=== PATIENT | male | born 1960 | race Caucasian/White ===

== ENCOUNTER 2023-01-28 09:30 | Emergency (ER) | payer MEDICAID ==
[2023-01-28 09:41] VITALS: BP 134/85
--- NOTE | 2023-01-28 10:15 | ED Physician Documentation ---
PD HPI SKIN - Stated complaint Stated Complaint: NECK RASH,RED SPOTS ON BODY - Chief complaint Chief Complaint: Wound - History obtained from History obtained from: Patient - History of Present Illness Timing - onset: How many weeks ago (2) Timing - duration: Weeks (2) Timing - details: Gradual onset Location: Chest, Abdomen, Back, RUE, LUE, RLE, LLE Quality / character: Itchy - Additional information Additional information: 62-year-old male with a rash to the neck, down through his back and torso. Complains as itchy. No fevers. He states that there has been drainage to one of the areas up near his neck. Does not recall any new soaps, detergents, medic ations, foods. He complains of the rash on his arms and legs as well. Review of Systems Constitutional: denies: Fever, Chills GI: denies: Vomiting, Diarrhea Neurologic: denies: Headache PD PAST MEDICAL HISTORY - Past Medical History Cardiovascular: Hypertension Respiratory: None GI: None : None HEENT: None Musculoskeletal: None Derm: None - Past Surgical History General: Liver surgery, Other - Present Medications Home Medications: Ambulatory Orders Medication Instructions Recorded Confirmed cephALEXin [Keflex] 500 mg PO QID #40 capsule 06/06/16 cephALEXin [Keflex] 500 mg PO Q6H #28 cap 01/28/23 predniSONE [Deltasone] 10 mg PO [id number] #42 tab 01/28/23 - Allergies Allergies/Adverse Reactions: Allergies Allergy/AdvReac Type Severity Reaction Status Date / Time No Known Drug Allergies Allergy Verified 01/28/23 09:42 - Social History Does the pt smoke?: Yes Smoking Status: Current every day smoker Does the pt drink ETOH?: Yes Does the pt have substance abuse?: No PD ED PE NORMAL - Vitals Vital signs reviewed: Yes - General General: Alert and oriented X 3, No acute distress - HEENT HEENT: PERRL, Moist mucous membranes - Neck Neck: Supple, no meningeal sign - Cardiac Cardiac: RRR, Strong equal pulses - Respiratory Respiratory: No respiratory distress, Clear bilaterally - Abdomen Abdomen: Soft, Non tender, Non distended - Derm Derm: Warm and dry - Neuro Neuro: Alert and oriented X 3 - Psych Psych: Normal mood, Normal affect - Free text exam Free text exam: Diffuse maculopapular exanthem over the back, arms, legs, chest and abdomen. There is significant excoriation up near the neck, especially on the left side where there is erythema and slight drainage. Results - Vitals Vitals: Vital Signs - 24 hr 01/28/23 09:37 Temperature 36.9 C Heart Rate 82 Respiratory 16 Rate Blood Pressure 134/85 H O2 Saturation 100 Oxygen O2 Source Room air PD Medical Decision Making - ED course Complexity details: considered differential, d/w patient ED course: Patient with a maculopapular rash of unclear etiology. Will place on a steroid taper. He appears to have secondary infection of a small area on the left neck. We will place on antibiotics orally for this. Patient is well-appearing, nontoxic. Afebrile. Patient counseled regarding signs and symptoms for which I believe and urgent re-evaluation would be necessary. Patient with good understanding of and agreement to plan and is comfortable going home at this time This document was made in part using voice recognition software. While efforts are made to proofread this document, sound alike and grammatical errors may occur. Departure - Departure Disposition: 01 Home, Self Care Clinical Impression: Dermatitis Cellulitis Qualifiers: Site of cellulitis: unspecified site Qualified Code(s): L03.90 - Cellulitis, unspecified Condition: Good Instructions: ED Infec Skin Cellulitis, ED Dermatitis Non Specific Rash Follow-Up: Terra Horn DO [Primary Care Provider] - [facility] [Provider Group] [facility] [Provider Group] - Within 1 week [facility] [Provider Group] Prescriptions: predniSONE [Deltasone] 10 mg PO [id number] #42 tab cephALEXin [Keflex] 500 mg PO Q6H #28 cap Comments: The cause of your symptoms is unclear. We will put you on steroids and antibiotics. This should improve with the rash and the secondary infection. Please follow-up for a recheck with your doctor in approximately 1 week. If your symptoms are still present, you may want to make an appointment with dermatology. Their information is on this paperwork. Your prescriptions were sent to [facility] in [place]. Discharge Date/Time: 01/28/23 10:26
== END 2023-01-28 10:26 | disposition home or self-care (01) ==
LOC: ED 09:30
DX: L30.9 Dermatitis, unspecified (principal); L03.90 Cellulitis, unspecified; I10 Essential (primary) hypertension; F17.200 Nicotine dependence, unspecified, uncomplicated
CPT/HCPCS: 99282; 99283

== ENCOUNTER 2023-04-23 08:30 | Emergency (ER) | payer MEDICAID ==
--- NOTE | 2023-04-23 08:40 | ED Physician Documentation ---
PD HPI UPPER EXT INJURY - Stated complaint Stated Complaint: LT SHOULDER PX - Chief complaint Chief Complaint: Trauma Ext - History obtained from History obtained from: Patient - History of Present Illness Location: Left, Shoulder Type of injury: Fall (he says he got up too fast and felt lightheaded and stumbled and fell. Did not have LOC. did not strike head.) Where injury occurred: Home Timing - onset: How many days ago ("few") Timing - duration: Days ("few") Timing - details: Abrupt onset, Still present Worsened by: Moving, Palpating Associated symptoms: Swelling, Discolored (very bruised around shoulder and down anterior arm increasingly.). No: Weakness, Numbness Contributing factors: No: Anticoagulated, Prior ortho surgery Similar symptoms before: Has not had sx before Recently seen: Not recently seen Review of Systems Skin: denies: Abrasion (s), Laceration (s) Musculoskeletal: reports: Extremity swelling. denies: Neck pain, Back pain PD PAST MEDICAL HISTORY - Past Medical History Cardiovascular: Hypertension Respiratory: None GI: None : None HEENT: None Musculoskeletal: None Derm: None - Past Surgical History General: Liver surgery, Other - Present Medications Home Medications: Ambulatory Orders Medication Instructions Recorded Confirmed Acetaminophen [Acetaminophen Extra 500 mg PO QID PRN #50 tablet 04/23/23 Strength] Famotidine [Pepcid] 20 mg PO BID 04/23/23 04/23/23 methocarbamoL [Robaxin] 500 mg PO Q6H PRN #30 tablet 04/23/23 oxyCODONE [Roxicodone] 5 mg PO Q6H PRN #20 tablet 04/23/23 - Allergies Allergies/Adverse Reactions: Allergies Allergy/AdvReac Type Severity Reaction Status Date / Time No Known Drug Allergies Allergy Verified 04/23/23 08:33 - Social History Does the pt smoke?: Yes Smoking Status: Current every day smoker Does the pt drink ETOH?: Yes Does the pt have substance abuse?: No PD ED PE NORMAL - Vitals Vital signs reviewed: Yes - General General: Alert and oriented X 3, No acute distress, Well developed/nourished - HEENT HEENT: Atraumatic - Neck Neck: Supple, no meningeal sign, No bony TTP - Derm Derm: Normal color, Warm and dry - Extremities Extremities: Other (left shoulder tender with effusion and hematoma anteriorly. Not feeling dislocated but there is deformity of the proximal humerus. No skin lesions/lacs. Bruising around shoulder and anterior upper arm down to elbow area but not tender tnere. ) - Neuro Neuro: Alert and oriented X 3, No motor deficit, No sensory deficit Results - Vitals Vitals: Vital Signs - 24 hr 04/23/23 04/23/23 08:36 10:26 Temperature 36.5 C Heart Rate 91 75 Respiratory 16 16 Rate Blood Pressure 134/93 H 123/86 H O2 Saturation 100 99 Oxygen O2 Source Room air - Rads (name of study) left shouldeg Relevant Findings:: Prelim report reviewed, EMP independent interpretation of test (humeral neck fracture with displacement and angulation of distal segment. No dislocaiton.), See rad report Procedures - Splint (location) - Minor left upper arm Splint applied by: Tech Type of splint: Sugar tong Other: Patient tolerated well, No complications, Neurovascular intact, Sling provided PD Medical Decision Making - ED course Complexity details: reviewed results, considered differential (he had humeral neck fracture that is angulated and upriding. Rather than a Marie type brace, I think he needs a sugartong to protect outer part and has some weight to pull down the distal portion. To follow up with ortho in about a week. ), d/w patient Departure - Departure Disposition: 01 Home, Self Care Clinical Impression: Fall from slip, trip, or stumble, Fracture of neck of humerus Condition: Stable Record reviewed to determine appropriate education?: Yes Instructions: ED Fx Shoulder Follow-Up: [facility] [Provider Group] Prescriptions: Acetaminophen [Acetaminophen Extra Strength] 500 mg PO QID PRN #50 tablet PRN Reason: Pain methocarbamoL [Robaxin] 500 mg PO Q6H PRN #30 tablet PRN Reason: Spasms oxyCODONE [Roxicodone] 5 mg PO Q6H PRN #20 tablet PRN Reason: Pain Comments: You have a fracture of the humerus bone which is the one up to the shoulder. The ball of the humerus is in place so there is not a dislocation. It is broken just below that. Typically will treat this with the splint there to try to protect it and also allow a slight pull downward to align it. Use the sling to help support the arm as well. Follow-up with orthopedics in about a week, call today for an appointment. Tylenol 4 times daily for pain. Robaxin muscle relaxant for spasms. To that add oxycodone every 6 hours if needed for pain. I sent your prescriptions to [facility] pharmacy. My narcotic instructions I am prescribing a short course of narcotic pain medication for you. These are potentially dangerous and addictive medications that should be used carefully. These medications may constipate you. Take an melv-mzv-txoxxon stool softener such as docusate twice daily with plenty of water while taking these medications. If you go 24 hours without a bowel movement, take acvu-wsx-oepvyeu MiraLAX, per package instructions. Do not drink or drive while taking these medications. If you received narcotic or sedating medications while in the emergency department do not drive for 24 hours. Store this medication in a safe, secure place and out of reach of children. It is a violation of federal law to give or sell this medication to another person or to use in a manner other than prescribed. The ED will not refill narcotic prescriptions, including prescriptions lost or stolen. You can dispose of unwanted medications at the [facility] office or at several pharmacies such as [facility]. Discharge Date/Time: 04/23/23 10:26
--- OUTSIDE RECORDS SUMMARY | 2023-04-23 09:07 | EXTERNAL MEDICAL SUMMARY RPT | Continuity of Care Document ---
Author Name Unknown Address [address] [place] [address] Phone Organization [facility] Address [address] [place] [address] Phone Care Team Providers Care Case Assistant Name Role Phone Suhail Wagner Rn Unavailable Unavailable Medications date description facility 2023-01-28 00:00 cephalexin [facility] 2023-01-28 00:00 prednisone All 2023-01-28 00:00 cephalexin All 2023-01-28 00:00 prednisone All 2023-01-28 00:00 prednisone All 2023-01-28 00:00 prednisone All 2023-01-28 00:00 cephalexin All 2023-01-28 00:00 cephalexin All
--- NOTE | 2023-04-23 09:12 | XRAY Report ---
PROCEDURE: Shoulder 3 View LT INDICATIONS: fell to left shoulder TECHNIQUE: 3 views of the shoulder were acquired. COMPARISON: None. FINDINGS: Bones: There is a comminuted, displaced, angulated, impacted fracture of the left humeral surgical n cristal. Soft tissues: No suspicious soft tissue calcifications. IMPRESSION: Displaced left proximal humeral surgical neck fracture. Reviewed by: Jada Long MD on 04/23/2023 9:10 AM PDT Approved by: Jada Long MD on 04/23/2023 9:10 AM PDT Station ID: [id number]
[2023-04-23] MEDS ORDERED: oxyCODONE 5 MG TABLET PO STA (09:33)
[2023-04-23] MEDS ORDERED: methocarbamoL 500 MG TABLET PO STA (09:34)
[2023-04-23 10:28] VITALS: BP 123/86
== END 2023-04-23 10:26 | disposition home or self-care (01) ==
LOC: ED 08:30
DX: S42.212A Unspecified displaced fracture of surgical neck of left humerus, initial encounter for closed fracture (principal); W01.0XXA Fall on same level from slipping, tripping and stumbling without subsequent striking against object, initial encounter; I10 Essential (primary) hypertension; F17.200 Nicotine dependence, unspecified, uncomplicated; Z79.899 Other long term (current) drug therapy
CPT/HCPCS: 29105; 73030; 99283; 99284; A9270

== ENCOUNTER 2023-06-12 17:37 | Outpatient (CLI) | payer MEDICAID | END 2023-06-12 23:59 | disposition left against medical advice (07) | LOC: EMS 17:37 | DX: S00.81XA Abrasion of other part of head, initial encounter (principal); W01.0XXA Fall on same level from slipping, tripping and stumbling without subsequent striking against object, initial encounter; Y92.481 Parking lot as the place of occurrence of the external cause ==

== ENCOUNTER 2023-06-19 14:14 | Emergency (ER) | payer MEDICAID ==
--- NOTE | 2023-06-19 14:47 | ED Physician Documentation ---
PD HPI UPPER EXT INJURY - Stated complaint Stated Complaint: LT ARM BONE POP - Chief complaint Chief Complaint: Ext Problem - History obtained from History obtained from: Patient - Additonal information Additional information: Patient presents from home by private vehicle for L arm injury. Patient states that the injury was approximately 3 weeks old, however record review shows that injury was sustained at least 2 months ago. Patient states he was post to follow-up with orthopedic surgery but did not because "I am a procrastinator". When asked why the patient presented today he states "because it is becoming an inconvenience". He has obvious deformity to the left shoulder. He is able to move his arm but is not able to elevate the extremity past 90 degrees. PD PAST MEDICAL HISTORY - Past Medical History Cardiovascular: Hypertension Respiratory: None GI: None : None HEENT: None Musculoskeletal: None Derm: None - Past Surgical History General: Liver surgery, Other - Present Medications Home Medications: Ambulatory Orders Medication Instructions Recorded Confirmed Acetaminophen [Acetaminophen Extra 500 mg PO QID PRN #50 tablet 04/23/23 06/19/23 Strength] Famotidine [Pepcid] 20 mg PO BID 04/23/23 06/19/23 - Allergies Allergies/Adverse Reactions: Allergies Allergy/AdvReac Type Severity Reaction Status Date / Time No Known Drug Allergies Allergy Verified 06/19/23 14:28 - Social History Does the pt smoke?: Yes Smoking Status: Current every day smoker Does the pt drink ETOH?: Yes Does the pt have substance abuse?: No PD ED PE NORMAL - Vitals Vital signs reviewed: Yes - General General: Alert and oriented X 3, No acute distress, Other (disheveled, appears chronically unwell) - Cardiac Cardiac: RRR - Respiratory Respiratory: No respiratory distress, Clear bilaterally - Abdomen Abdomen: Soft, Non distended - Extremities Extremities: Other (deformity L shoulder. Able to abduct shoulder to 90 degrees. 2+ radial pulses) - Neuro Neuro: Alert and oriented X 3, toolroom clerk 2-12 intact, No sensory deficit, Normal speech - Psych Psych: Normal mood, Normal affect Results - Vitals Vitals: Vital Signs - 24 hr 06/19/23 14:21 Temperature 38.0 C H Heart Rate 93 Respiratory 20 Rate Blood Pressure 159/127 H O2 Saturation 95 Oxygen O2 Source Room air PD Medical Decision Making - ED course Complexity details: reviewed results, re-evaluated patient, considered differential, d/w patient ED course: Chronic LUE fracture. Neurovascularly intact. Obvious bony deformity with protrusion of skin of shoulder, however no tenting of skin. XR reviewed. Dr. Gary of orthopedic surgery evaluated patient - this is chronic wound and almost completely healed. In addition patient is heavy smoker and alcohol user - he is not an ideal surgical candidate, and would eventually need complete shoulder replacement once optimized from a health standpoint. Patient states he will "cut down" on alcohol but will not stop smoking. Departure - Departure Disposition: 01 Home, Self Care Clinical Impression: Humerus fracture, Tobacco use, Alcohol use disorder Condition: Stable Instructions: Tips Cardiovascular Quit Smoking, Alcoholism, ED Fx Upper Ext Follow-Up: Kaden Gary MD [Provider Admit Priv/Credential] - Comments: FOLLOW UP WITH ORTHOPEDIC SURGERY. TO BE THE BEST SURGICAL CANDIDATE YOU MUST BE ALCOHOL AND TOBACCO FREE. Forms: PCP List
--- NOTE | 2023-06-19 15:10 | XRAY Report ---
PROCEDURE: Shoulder 3 View LT INDICATIONS: deformity. Follow-up fracture. TECHNIQUE: 3 views of the shoulder were acquired. COMPARISON: Radiograph 04/23/2023. FINDINGS: Bones: There is a 2 part fracture of the surgical neck of the humerus, with new bone callus formatio n. Alignment is similar. Soft tissues: No suspicious soft tissue calcifications. IMPRESSION: Similar alignment of the 2 part fracture of the humeral surgical neck. Bone callus formation present. Reviewed by: López Lauren on 06/19/2023 3:09 PM PDT Approved by: López Lauren on 06/19/2023 3:09 PM PDT Station ID: [id number]
[2023-06-19 15:32] VITALS: BP 105/65
== END 2023-06-19 15:32 | disposition home or self-care (01) ==
LOC: ED 14:14
DX: S42.302A Unspecified fracture of shaft of humerus, left arm, initial encounter for closed fracture (principal); X58.XXXA Exposure to other specified factors, initial encounter; I10 Essential (primary) hypertension; F17.200 Nicotine dependence, unspecified, uncomplicated; F10.90 Alcohol use, unspecified, uncomplicated
CPT/HCPCS: 99283

== ENCOUNTER 2023-08-15 09:34 | Emergency (ER) | payer MEDICAID ==
--- NOTE | 2023-08-15 10:51 | ED Physician Documentation ---
PD HPI UPPER EXT INJURY - Stated complaint Stated Complaint: LT SHOULDER PX - Chief complaint Chief Complaint: Ext Problem - History obtained from History obtained from: Patient - History of Present Illness Location: Left, Shoulder Type of injury: Fall Where injury occurred: Home (slipped on floor at home with humeral neck fracture few months ago. Seen by ortho couple months ago and told it was healing with callus and to have PT to see if shoulder movement improvable. He states having increased pain and now swelling/redness at end of collarbone area for 1-2 weeks.) Timing - details: Abrupt onset, Still present Associated symptoms: No: Weakness, Numbness Review of Systems Constitutional: denies: Fever, Chills Skin: reports: Lesions Neurologic: denies: Focal weakness, Numbness PD PAST MEDICAL HISTORY - Past Medical History Past Medical History: Yes Cardiovascular: Hypertension Respiratory: None GI: None : None HEENT: None Musculoskeletal: None Derm: None - Past Surgical History Past Surgical History: Yes General: Liver surgery, Other - Present Medications Home Medications: Ambulatory Orders Medication Instructions Recorded Confirmed Acetaminophen [Acetaminophen Extra 500 mg PO QID PRN #50 tablet 04/23/23 06/19/23 Strength] Famotidine [Pepcid] 20 mg PO BID 04/23/23 06/19/23 HYDROcod/ACETAM 5/325 [Remer 5/325] 1 ea PO Q6H PRN #18 tablet 08/15/23 Meloxicam [Mobic] 7.5 mg PO BID 10 Days #20 tablet 08/15/23 cephALEXin [Keflex] 500 mg PO TID #20 cap 08/15/23 - Allergies Allergies/Adverse Reactions: Allergies Allergy/AdvReac Type Severity Reaction Status Date / Time No Known Drug Allergies Allergy Verified 08/15/23 09:44 - Social History Does the pt smoke?: Yes Smoking Status: Current every day smoker Does the pt drink ETOH?: Yes Does the pt have substance abuse?: No PD ED PE NORMAL - Vitals Vital signs reviewed: Yes - HEENT HEENT: Atraumatic - Neck Neck: Supple, no meningeal sign, No bony TTP - Cardiac Cardiac: RRR, No murmur - Respiratory Respiratory: Clear bilaterally - Abdomen Abdomen: Soft, Non tender - Derm Derm: Warm and dry - Extremities Extremities: Other (AC area of shoulder with local area of redness, warmth, tender, and fluid fluctuance c/w possible bursitis vs skin infection.) - Neuro Neuro: Alert and oriented X 3, No motor deficit, No sensory deficit Results - Vitals Vitals: Vital Signs - 24 hr 08/15/23 08/15/23 09:41 11:54 Temperature 36.2 C L 36.3 C L Heart Rate 107 H 98 Respiratory 20 19 Rate Blood Pressure 140/89 H 133/79 H O2 Saturation 99 98 Oxygen O2 Source Room air - Rads (name of study) left shoulder Relevant Findings:: Prelim report reviewed (bone callus formed at prior fracture. Cannot exclude refracture.), EMP independent interpretation of test (head fairly close in position to prior film. the current film shows apparent spur/bone finger, going upward that is new. ) PD Medical Decision Making - ED course Complexity details: reviewed results (he has prior humeral neck fracture with healing in angulated way. However apparent new spur of bone up to end just below skin level. This is different from last xray. ), re-evaluated patient (there is redness and fluctuance with warmth at the AC area of shoulder. Consider bursitis vs local infection. I wonder if there would be surgical approach to the spur that has developed as it is causing pressure of the skin from inside. Suggest f/u with ortho. ), considered differential (prior shoulder fracture 3 months ago, healed at angle. He states having more pain recently and has developed area of redness and tender at AC area. Seen by Ortho couple months ago. Has new area of tenderness recently. ), d/w patient Departure - Departure Disposition: 01 Home, Self Care Clinical Impression: Shoulder pain, Bursitis, shoulder Condition: Stable Record reviewed to determine appropriate education?: Yes Follow-Up: Kaden Gary MD [Provider Admit Priv/Credential] - Prescriptions: cephALEXin [Keflex] 500 mg PO TID #20 cap Meloxicam [Mobic] 7.5 mg PO BID 10 Days #20 tablet HYDROcod/ACETAM 5/325 [Remer 5/325] 1 ea PO Q6H PRN #18 tablet PRN Reason: Pain Comments: Your x-ray today compared to May shows a spur bone growth upward that had not been visible previously. It looks like the spur or spicule of bone is trying to heal in response to the injury. Its pushing upward to the underside of the bursa and the shoulder. You do have redness and swelling and some fluid in the bursa of the shoulder. Consideration would be inflammation versus infection of that. I prescribed an anti-inflammatory meloxicam and the cephalexin antibiotic to be taking regularly. To that add Tylenol every 4-6 hours if needed for pain or hydrocodone/acetaminophen if needed for worse pain. I would call and make an appointment back with the orthopedic office to re evaluate. They typically would not try to fix the alignment of the prior fracture as it its healed in an angulated way and the main goal is for the shoulder to work as best as it can. However the new bone spur may be able to be addressed surgically. I would be the question for the orthopedist. I sent your prescriptions to the [facility] pharmacy in [place]. I am prescribing a short course of narcotic pain medication for you. These are potentially dangerous and addictive medications that should be used carefully. These medications may constipate you. Take an vfcy-obr-gqlrarb stool softener such as docusate twice daily with plenty of water while taking these medications. If you go 24 hours without a bowel movement, take ksrl-kyw-leqhbhw MiraLAX, per package instructions. Do not drink or drive while taking these medications. If you received narcotic or sedating medications while in the emergency department do not drive for 24 hours. Store this medication in a safe, secure place and out of reach of children. It is a violation of federal law to give or sell this medication to another person or to use in a manner other than prescribed. The ED will not refill narcotic prescriptions, including prescriptions lost or stolen. You can dispose of unwanted medications at the [facility]'s office or at several pharmacies such as [facility]. Forms: PCP List Discharge Date/Time: 08/15/23 11:54
[2023-08-15] MEDS ORDERED: NAPROXEN 250 MG TABLET PO STA (11:04)
[2023-08-15] MEDS ORDERED: cephALEXin 250 MG CAPSULE PO STA (11:04)
[2023-08-15] MEDS ORDERED: ACETAMINOPHEN 325 MG TABLET PO STA (11:04)
[2023-08-15 12:00] VITALS: BP 133/79; O2SAT 98
--- NOTE | 2023-08-15 12:27 | XRAY Report ---
PROCEDURE: Shoulder 3 View LT INDICATIONS: prior fx/malunion; increased pain few days TECHNIQUE: 4 views of the shoulder were acquired. COMPARISON: 04/23/2023 and 06/19/2023. FINDINGS: Bones: Marked deformity related to the none humeral neck fracture, with significant worsening of ali gnment compared to the more recent study. There is significant displacement and overriding. There is relatively mature callus present. Cannot exclude interval refracture. Soft tissues: No suspicious soft tissue calcifications. The visualized lungs are within normal limi ts. IMPRESSION: Cannot exclude interval refracture. There is significant worsening of alignment of a humeral neck fra cture. Reviewed by: Tylor Mcdonnell MD on 08/15/2023 12:26 PM PDT Approved by: Tylor Mcdonnell MD on 08/15/2023 12:26 PM PDT Station ID: [id number]
== END 2023-08-15 11:54 | disposition home or self-care (01) ==
LOC: ED 09:34
DX: S42.302S Unspecified fracture of shaft of humerus, left arm, sequela (principal); X58.XXXS Exposure to other specified factors, sequela; I10 Essential (primary) hypertension; F17.200 Nicotine dependence, unspecified, uncomplicated
CPT/HCPCS: 73030; 99283; 99284; A9270

== ENCOUNTER 2023-08-27 14:33 | Emergency (ER) | payer MEDICAID, OTHER ==
--- NOTE | 2023-08-27 16:11 | XRAY Report ---
PROCEDURE: Shoulder 2 View LT INDICATIONS: L shoulder open wound TECHNIQUE: 4 views of the shoulder were acquired. COMPARISON: X-ray 08/15/2023. FINDINGS: Bones: Healing fracture of the proximal radius, with improved alignment compared with prior. Bone ca llus formation present. Soft tissues: No suspicious soft tissue calcifications. The visualized lungs are within normal limi ts. IMPRESSION: Healing left humerus fracture. No bony erosion. Reviewed by: López Lauren on 08/27/2023 4:10 PM PDT Approved by: López Lauren on 08/27/2023 4:10 PM PDT Station ID: [id number]
[2023-08-27 16:20] LABS: BASOPHILS # (AUTO) 0.1 10^3/uL (0.0-0.1); EOSINOPHILS # (AUTO) 0.3 10^3/uL (0.0-0.7); EOSINOPHILS % (AUTO) 4.9 %; HCT - HEMATOCRIT 40.7 % (42.0-52.0); HGB - HEMOGLOBIN 13.7 g/dL (14.0-18.0); LYMPHOCYTES # (AUTO) 1.5 10^3/uL (1.5-3.5); LYMPHOCYTES % (AUTO) 22.7 %; MEAN CORPUSCULAR HEMOGLOBIN 33.2 pg (27.0-31.0); MEAN CORPUSCULAR HGB CONC 33.7 g/dL (32.0-36.0); MEAN CORPUSCULAR VOLUME 98.5 fL (80.0-94.0); MEAN PLATELET VOLUME 9.8 fL (7.4-11.4); MONOCYTES # (AUTO) 1.2 10^3/uL (0.0-1.0); MONOCYTES % (AUTO) 18.1 %; NEUTROPHILS # (AUTO) 3.4 10^3/uL (1.5-6.6); NEUTROPHILS % (AUTO) 51.5 %; PLT - PLATELET COUNT 256 10^3/uL (130-450); RED BLOOD COUNT 4.13 10^6/uL (4.70-6.10); WHITE BLOOD COUNT 6.5 x10^3/uL (4.8-10.8)
--- NOTE | 2023-08-27 16:20 | ED Physician Documentation ---
History of Present Illness - Stated complaint Stated Complaint: LT SHOULDER PX/DISCOMFORT - Chief complaint Chief Complaint: Wound - History obtained from History obtained from: Patient - History of Present Illness Pain level max: 4 Pain level now: 3 - Additonal information Additional information: Patient is a 62-year-old male who presents to the emergency department stating that he has pain to the left shoulder and an open wound. He states there is packing in the wound. He states he does not know when this was placed, by whom or why. He states that he did have a humerus fracture about 3 months ago and was supposed to follow-up with orthopedics but never did. When I asked him why he did not follow-up he states "I did not feel like it". He was seen here on August 15 and diagnosed with possible bursitis, was started on cephalexin and meloxicam. Patient did not bulk picker the antibiotics or start the antibiotics. When asked why he did not take the medications as prescribed, he states "I did not feel like it". I asked the patient if he has an appointment with orthopedics, patient states that he has not contacted orthopedics for a follow- up appointment for his fracture. He again states he did not feel like doing this. Review of Systems Constitutional: denies: Fever, Chills GI: denies: Vomiting, Diarrhea Skin: denies: Rash Musculoskeletal: denies: Neck pain, Back pain Neurologic: denies: Headache PD PAST MEDICAL HISTORY - Past Medical History Past Medical History: Yes Cardiovascular: Hypertension Respiratory: None GI: None : None HEENT: None Musculoskeletal: None Derm: None - Past Surgical History Past Surgical History: Yes General: Liver surgery, Other - Present Medications Home Medications: Ambulatory Orders Medication Instructions Recorded Confirmed No Known Home Medications 08/27/23 08/27/23 - Allergies Allergies/Adverse Reactions: Allergies Allergy/AdvReac Type Severity Reaction Status Date / Time No Known Drug Allergies Allergy Verified 08/27/23 14:45 - Social History Does the pt smoke?: Yes Smoking Status: Current every day smoker Does the pt drink ETOH?: Yes ETOH Use: Beer Does the pt have substance abuse?: No - Immunizations Immunizations are current?: Yes PD ED PE NORMAL - Vitals Vital signs reviewed: Yes - General General: Alert and oriented X 3, No acute distress - HEENT HEENT: Moist mucous membranes - Neck Neck: Supple, no meningeal sign - Cardiac Cardiac: RRR - Respiratory Respiratory: No respiratory distress, Clear bilaterally - Derm Derm: Warm and dry - Extremities Extremities: Other (L shoulder - 1cm round open wound, visible bone under the wound. yellow drainage. Limited ROM 2/2 pain) - Neuro Neuro: Alert and oriented X 3 Results - Vitals Vitals: Vital Signs - 24 hr 08/27/23 08/27/23 08/27/23 14:45 18:25 21:35 Temperature 36.6 C Heart Rate 89 99 81 Respiratory 16 16 16 Rate Blood Pressure 127/86 H 123/76 117/79 O2 Saturation 97 95 96 08/27/23 21:49 Temperature 37.3 C Heart Rate Respiratory Rate Blood Pressure O2 Saturation Oxygen O2 Source Room air - Labs Labs: Laboratory Tests 08/27/23 08/27/23 08/27/23 16:12 16:12 20:00 WBC 6.5 RBC 4.13 L Hgb 13.7 L Hct 40.7 L MCV 98.5 H MCH 33.2 H MCHC 33.7 RDW 14.0 Plt Count 256 MPV 9.8 Neut # (Auto) 3.4 Lymph # (Auto) 1.5 Toombs # (Auto) 1.2 H Eos # (Auto) 0.3 Baso # (Auto) 0.1 Absolute Nucleated RBC 0.00 Nucleated RBC % 0.0 Sodium 137 Potassium 4.4 Chloride 98 L Carbon Dioxide 28 Anion Gap 11.0 BUN 5 L Creatinine 0.5 L Estimated GFR (MDRD) 167 Glucose 90 Calcium 9.0 Total Bilirubin 0.5 AST 135 H ALT 49 Alkaline Phosphatase 123 H Total Protein 7.6 Albumin 4.1 Globulin 3.5 Albumin/Globulin Ratio 1.2 SARS-CoV-2 (PCR) NOT DETECTED - Rads (name of study) L shoulder xray Relevant Findings:: Final report received, See rad report PD Medical Decision Making - ED course Complexity details: reviewed results, re-evaluated patient, considered differential, d/w patient, d/w mergers and acquisitions consultant ED course: 62-year-old male presents to the emergency department with a open wound to the left shoulder. This appears to be the superior fragment of the humerus shaft fracture from March. The patient has been very poor with his follow-up. The fragment has eroded through the skin and has some slight drainage from the wound. There is erythema surrounding as well. Patient was given 2 g of Ancef IV. We have no orthopedics on-call here today. Discussed the case with orthopedics at [facility], Dr. Wang, she graciously accepts in transfer. Patient was transferred to [facility] for further care. COBRA forms completed. Patient transferred This document was made in part using voice recognition software. While efforts are made to proofread this document, sound alike and grammatical errors may occur. Departure - Departure Disposition: 02 Transfer Acute Care Hosp Clinical Impression: Fragmented bone, Skin erosion Condition: Stable Forms: PCP List Discharge Date/Time: 08/27/23 21:50
[2023-08-27] MEDS: ceFAZolin (2G) 2 GM in SODIUM CHLORIDE 0.9% 100ML 100 ML IV STA (16:33)
[2023-08-27 16:54] LABS: ALBUMIN 4.1 g/dL (3.2-5.5)
[2023-08-27 16:57] LABS: ALBUMIN/GLOBULIN RATIO 1.2 (1.0-2.2); BILIRUBIN,TOTAL 0.5 mg/dL (0.2-1.0); CREATININE 0.5 mg/dL (0.6-1.3); POTASSIUM 4.4 mmol/L (3.5-4.5); TOTAL PROTEIN 7.6 g/dL (6.4-8.9)
[2023-08-27 21:36] VITALS: BP 117/79; O2SAT 96
== END 2023-08-27 21:50 | disposition short-term general hospital (02) ==
LOC: ED 14:33
DX: S42.302K Unspecified fracture of shaft of humerus, left arm, subsequent encounter for fracture with nonunion (principal); X58.XXXD Exposure to other specified factors, subsequent encounter; I10 Essential (primary) hypertension; F17.200 Nicotine dependence, unspecified, uncomplicated
CPT/HCPCS: 36415; 80053; 85025; 87635; 96365; 99284

== ENCOUNTER 2023-09-20 12:45 | Emergency (ER) | payer MEDICAID ==
[2023-09-20 12:58] VITALS: O2SAT 100
--- NOTE | 2023-09-20 13:21 | ED Physician Documentation ---
PD HPI UPPER EXT INJURY - Stated complaint Stated Complaint: STITCH REMOVAL - Chief complaint Chief Complaint: Laceration - History obtained from History obtained from: Patient - Additonal information Additional information: Patient is a 62-year-old male presenting for evaluation of a suture removal. Patient sustained a left humeral fracture after a fall in March and had poor outpatient follow-up regarding his injury and was seen in the emergency department several times for pain. He was most recently seen on August 27 and at that time it was noted that he had An open wound with visible bone and purulent drainage. He was transferred to [facility]. He underwent an incision and drainage of the wound And was on IV antibiotics for 1 week. Plan was for continuation of oral antibiotics for another month. He was initially given a prescription for Bactrim but did not really start this prescription. The antibiotic prescription was changed to Levaquin on September 04. Patient was post to follow-up at [facility] with orthopedic surgery and infectious disease on September 19 but did not make those appointments. On review of L patient notes there were attempts to reach him through various social workers to help arrange for transport but his phone was then turned off. Patient states he does not have his cell phone working currently but does have access to a phone at the motel he is staying at. He picked up he has not started his Levaquin as he just picked up this antibiotic he states yesterday and has not yet started this. He is requesting for his sutures to be removed as they are irritating him when he is wearing a shirt. He denies fever, worsening pain, abnormal drainage. Patient also is requesting an x-ray of his left shoulder. He states he wants to see what the bone looks like today. He states he was discharged with a sling but also has not been using it. From [facility] Records: 08/28: Left humerus I&D, repair, and antibiotic spacer If incisions are well healed sutures/leland can be removed on or after 2-3 weeks from your surgery in our clinic. Once sutures are out the healed incision can be left uncovered. If there are any concerns about the incision not being healed or if you have concerns for infection do not remove sutures and arrange orthopaedic team follow up promptly. Review of Systems Constitutional: denies: Fever Cardiac: denies: Chest pain / pressure Respiratory: denies: Dyspnea GI: denies: Abdominal Pain PD PAST MEDICAL HISTORY - Past Medical History Cardiovascular: Hypertension Respiratory: None GI: None : None HEENT: None Musculoskeletal: None Derm: None - Past Surgical History Past Surgical History: Yes General: Liver surgery, Other - Present Medications Home Medications: Ambulatory Orders Medication Instructions Recorded Confirmed No Known Home Medications 08/27/23 08/27/23 - Allergies Allergies/Adverse Reactions: Allergies Allergy/AdvReac Type Severity Reaction Status Date / Time No Known Drug Allergies Allergy Verified 09/20/23 12:53 - Social History Does the pt smoke?: Yes Smoking Status: Current every day smoker Does the pt drink ETOH?: Yes Does the pt have substance abuse?: No - Immunizations Immunizations are current?: Yes PD ED PE NORMAL - General General: Alert and oriented X 3, No acute distress, Well developed/nourished - HEENT HEENT: Atraumatic - Respiratory Respiratory: No respiratory distress - Extremities Extremities: Other (Deformity to L shoulder; area of erythema (similar to photo from 08/27/23) with well healed incision; 3 sutures present; no drainage or warmth; able to extend at L shoulder up to 90 degrees; motor/sensation/pulses intact distally) Results - Vitals Vitals: Vital Signs - 24 hr 09/20/23 09/20/23 12:53 13:38 Temperature 36.5 C 36.5 C Heart Rate 100 90 Respiratory 16 16 Rate Blood Pressure 131/81 H 128/80 O2 Saturation 100 100 Oxygen O2 Source Room air PD Medical Decision Making - ED course Complexity details: reviewed results, re-evaluated patient, d/w patient ED course: Patient presenting for suture removal for wound to left shoulder that required incision and drainage at [facility] on August 28. Per discharge notes sutures to be removed in 2 to 3 weeks. Wound appears well-healed with no signs of dehiscence. 3 visible sutures present which I removed in their entirety. I am unable to see the operative note through [facility] everywhere to see have any sutures were placed but these are the visible ones. Patient is post to be on antibiotics for a month for treatment of wound infection but has not started this. He does have the prescription for Levaquin. He was counseled on the importance of making sure he completes the course of antibiotics as well as follow-up with orthopedic surgery and infectious disease at [facility]. He states having difficulties in getting down there and I did explain that per social work notes they are they are able to help him with arranging transportation. I provided him with phone numbers for both clinics as well as a social contact worker they are to call on Saturday to help arrange for appointments as well as for transportation. He states that although his phone does not work he does have access to a phone at the hotel he is staying at. At his request we also repeated the x-ray which shows a healing left humeral fracture which is relatively unchanged from prior x-ray. There is callus presence. Patient was given a new sling. Departure - Departure Disposition: 01 Home, Self Care Clinical Impression: Visit for suture removal, Left humeral fracture Condition: Stable Instructions: ED Fx Upper Ext Follow-Up: [facility] [Provider Group] Comments: You had 3 sutures removed from your left shoulder. Please make sure you take the antibiotic that you were prescribed as directed. You also need close follow-up with orthopedic surgery and infectious disease clinics at [facility]. PLEASE CALL SOON POSSIBLE [phone] (ORTHOPEDIC TRAUMA CLINIC) or [phone] (INFECTIOUS DISEASE CLINIC) or [facility] [employer] Worker [facility] [phone] Forms: PCP List Discharge Date/Time: 09/20/23 13:38
[2023-09-20 13:46] VITALS: BP 128/80
--- NOTE | 2023-09-20 13:59 | XRAY Report ---
PROCEDURE: Humerus LT INDICATIONS: fx TECHNIQUE: 3 views of the humerus were acquired. COMPARISON: X-ray left shoulder 08/27/2023 FINDINGS: Bones: Healing proximal humeral fracture with callus formation. Unchanged alignment. This is similar appearance compared to prior. Soft tissues: No suspicious soft tissue calcifications or masses. IMPRESSION: No significant change in healing left humeral fracture. Reviewed by: Wolfgang Newell MD on 09/20/2023 1:57 PM PDT Approved by: Wolfgang Newell MD on 09/20/2023 1:57 PM PDT Station ID: [id number]
== END 2023-09-20 13:38 | disposition home or self-care (01) ==
LOC: ED 12:45
DX: Z48.02 Encounter for removal of sutures (principal); S42.302D Unspecified fracture of shaft of humerus, left arm, subsequent encounter for fracture with routine healing; W19.XXXD Unspecified fall, subsequent encounter; I10 Essential (primary) hypertension; F17.200 Nicotine dependence, unspecified, uncomplicated
CPT/HCPCS: 99283

== ENCOUNTER 2023-10-01 11:30 | Emergency (ER) | payer MEDICAID ==
[2023-10-01 12:08] VITALS: BP 129/83; O2SAT 98
--- NOTE | 2023-10-01 12:41 | XRAY Report ---
PROCEDURE: Shoulder 3 View LT INDICATIONS: pain TECHNIQUE: 3 views of the shoulder were acquired. COMPARISON: 08/27/2023 FINDINGS: Bones: Fracture of the proximal humerus with evidence of attempted healing, but with interval increa sed angulation and displacement. Adjacent round hyperdensities may be postsurgical. Soft tissues: Partially seen degenerative glenohumeral and acromioclavicular joint changes. IMPRESSION: Worsened angulation and displacement of the proximal humerus fracture. There is evidence of prior att empted healing. Reviewed by: Joe Hammond MD on 10/01/2023 12:39 PM PST Approved by: Joe Hammond MD on 10/01/2023 12:39 PM PST Station ID: [id number]
--- NOTE | 2023-10-01 14:05 | ED Physician Documentation ---
History of Present Illness - Stated complaint Stated Complaint: LT SHOULDER PX - Chief complaint Chief Complaint: Ext Problem - Additonal information Additional information: 62-year-old male presents emergency department for evaluation of his left humeral fracture. He initially had a fall in March and sustained a humeral fracture but had poor outpatient follow-up. He was subsequently seen in this emergency department on August 27 and found to have an open wound with bone protruding through the wound. He was transferred to [facility] where he underwent incision and drainage of the wound and was placed on antibiotics for a week. Patient has been unable to follow-up with orthopedics or infectious disease at [facility] due to lack of transportation. He did see an ED provider here on 20 September and had sutures removed. Over the last 2 days he has bumped his arm several times and feels that the arm is no longer in the same position as it was in its become more painful. The patient has kept in place the bandage that was placed over the wound on the and not removed it. He denies any fevers. Review of Systems Skin: reports: Lesions Musculoskeletal: reports: Joint pain PD PAST MEDICAL HISTORY - Past Medical History Past Medical History: Yes Cardiovascular: Hypertension Respiratory: None GI: None : None HEENT: None Musculoskeletal: None Derm: None - Past Surgical History Past Surgical History: Yes General: Liver surgery, Other - Present Medications Home Medications: Ambulatory Orders Medication Instructions Recorded Confirmed No Known Home Medications 08/27/23 08/27/23 - Allergies Allergies/Adverse Reactions: Allergies Allergy/AdvReac Type Severity Reaction Status Date / Time No Known Drug Allergies Allergy Verified 10/01/23 11:58 - Social History Does the pt smoke?: Yes Smoking Status: Current every day smoker Does the pt drink ETOH?: No Does the pt have substance abuse?: No - Immunizations Immunizations are current?: Yes PD ED PE NORMAL - Extremities Extremities: Other (Patient is ranging the left shoulder in all planes. It is tender to palpation. There is an area of erythema of the anterior shoulder with a superficial ulceration that does not appear to have obvious bone protrusion. Moderate amount of serous drainage.) Results - Vitals Vitals: Vital Signs - 24 hr 10/01/23 11:58 Temperature 37.1 C Heart Rate 66 Respiratory 16 Rate Blood Pressure 129/83 H O2 Saturation 98 Oxygen O2 Source Room air - Rads (name of study) left humerus Relevant Findings:: Final report received (Worsened angulation and displacement of the proximal humerus fracture. There are evidence of prior attempted healing.) PD Medical Decision Making - ED course Complexity details: reviewed results, re-evaluated patient, considered differential, d/w patient ED course: 62-year-old male here for evaluation of his left shoulder. 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 Seen at [facility] and required intraoperative washout and repair of his wound. He was discharged on antibiotics. The patient reports to me he has completed his full course of Levaquin. I am the patient however has difficulty with transportation and has been not able to follow-up with orthopedics at [facility]. He hit his arm 2 days ago and since then feels like the shoulder is more out of joint. On exam he does have a scar on the anterior shoulder that does not appear infected and there is no drainage. An x-ray of the shoulder today shows that he now has worsening angulation and displacement of the proximal humeral fracture when compared to an x-ray obtained on the . I subsequently spoke to [facility] orthopedist Dr. Oliver. Given the patient's lack of fever remarkable vital signs and the appearance of the wound which was emailed to the center, he does not feel the patient needs transfer but he certainly needs to continue follow-up with orthopedics. The patient is wearing a sling. Patient is to call orthopedics to schedule follow-up. I discussed with patient that the emergency department was unable to provide transportation for him to [place]. At this time he is discharged home in stable condition with the advised to follow-up promptly with orthopedics otherwise return to the ER for new or worsening symptoms. Departure - Departure Disposition: 01 Home, Self Care Clinical Impression: Humerus fracture Qualifiers: Encounter type: initial encounter Humerus Location: proximal Fracture type: open Fracture alignment: displaced Laterality: left Condition: Stable Comments: Goran you do have worsening displacement of your humerus fracture. This bone is very fragile because of the infection that it had. Unfortunately [facility] does not have the capacity to manage this in the long-term. I spoke with the orthopedics team at [facility]. You are encouraged to call them to arrange outpatient follow-up. Please call [phone]. Request to be seen with orthopedics red team. Return to the ER if you develop fevers, have drainage from your wound increased pain increased redness or swelling surrounding it. Forms: PCP List
== END 2023-10-01 17:20 | disposition home or self-care (01) ==
LOC: ED 11:30
DX: S42.202K Unspecified fracture of upper end of left humerus, subsequent encounter for fracture with nonunion (principal); W19.XXXD Unspecified fall, subsequent encounter; L98.498 Non-pressure chronic ulcer of skin of other sites with other specified severity; F17.200 Nicotine dependence, unspecified, uncomplicated
CPT/HCPCS: 99283; 99284

== ENCOUNTER 2024-04-23 11:10 | Outpatient (CLI) | payer MEDICAID | END 2024-04-23 11:11 | disposition E | LOC: EMS 11:10 ==